=== PATIENT | male | born 1950 | race Caucasian/White ===

== ENCOUNTER 2024-06-09 08:00 | Outpatient (CLI) | payer OTHER | END 2024-06-09 15:24 | disposition home or self-care (01) | LOC: SLB 08:00 → EDSTATUS 06-23 12:59 | PROVIDERS: ATTEND Orthopaedic Surgery Sports Medicine | DX: Z96.651 Presence of right artificial knee joint (principal); Z96.652 Presence of left artificial knee joint | CPT/HCPCS: 87081 ==